=== PATIENT | female | born 1985 ===

== ENCOUNTER 2024-09-22 09:51 | Inpatient (IN) ==
[2024-09-22] MEDS ORDERED: Patient's HEIGHT &/or WEIGHT Needed SCH (10:15)
[2024-09-22] MEDS ORDERED: Patient's ALLERGY Info needs ENTERED SCH (10:15)
--- NOTE | 2024-09-22 11:07 | History & Physical Report ---
Date of Service September 22, 2024 Assessment & Plan (1) Multigravida of advanced maternal age in third trimester: Plan: induction of labor Admission and Anticipated Discharge Date Admission Date: September 22, 2024 History of Present Illness Chief Complaint: induction of labor for AMA Primary Care Provider: LILIYA PCP 38 F P2012 at 39 weeks admitted to L&D for IOL for AMA. GBS is negative. 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 Review of Systems All systems reviewed & are unremarkable except as noted in HPI & below Physical Exam Constitutional: WD/WN, vitals as above Eyes: PERRL, conjunctivae normal, anicteric sclerae Respiratory: normal respiratory effort, lungs clear to auscultation Cardiovascular: Rate/Rhythm: regular rate and regular rhythm Gastrointestinal (Abdomen): Inspection/Auscultation: abdomen normal to inspection Musculoskeletal: Extremities: extremities normal to inspection Skin: no rashes, warm and dry Neurologic: patellar DTR's 2+ bilat, sensation intact Psychiatric: A+Ox3, euthymic affect Genitourinary: no vaginal lesions, no adnexal mass Manual OB Exam: + cervical dilation fingertip, + cervical effacement 50% and + station high OB Exam Monitor Tracing: + external FHT monitor used, + external uterine monitor used, + category I and + normal FHT variability Porter placed transcervically with 45 ml. saline placed in the balloon for ripening Results & Data Vital Signs (Past 12 Hours) Vital Signs Pulse BP 09/22/24 10:06 88 127/78 09/22/24 10:03 87 123/101 H Laboratory Results Laboratory Results - last 72 hr 09/22/24 11:02 WBC 6.30 RBC 3.78 L Hgb 10.9 L Hct 32.0 L MCV 84.7 MCH 28.8 MCHC 34.1 RDW Std Deviation 43.9 RDW Coeff of Malorie 14.3 Plt Count 256 MPV 9.6 Code Status & VTE Plan VTE Prophylaxis Plan VTE Prophylaxis will be ordered: No Monitoring External Monitor Cat 1
[2024-09-22 11:25] LABS: Hemoglobin 10.9 g/dl (12.0-16.0); Mean Corpuscular Hemoglobin 28.8 pg (25.0-34.0); Mean Corpuscular Hgb Conc 34.1 g/dL (32.0-36.0); Mean Corpuscular Volume 84.7 fL (80.0-100.0); Mean Platelet Volume 9.6 fL (9.4-12.4); Platelet Count 256 K/uL (130-400); RDW Coefficient of Variation 14.3 % (11.5-14.5); RDW Standard Deviation 43.9 fL (36.4-46.3); Red Blood Count 3.78 M/uL (4.20-5.40)
[2024-09-22] MEDS ORDERED: OXYTOCIN 30 UNITS/NSS 30 UNITS/500 ML BAG IV PRN ×2 (12:00→19:54)
[2024-09-22] MEDS ORDERED: LIDOCAINE 1% LOCAL 20 ML VIAL INFIL PRN (12:00)
[2024-09-22] MEDS: miSOPROStoL 50 MCG TAB PO SCH (12:06)
[2024-09-22] MEDS ORDERED: fentANYL 2 MCG/ML BUPIVacaine 0.125%-NSS 100ML BAG EPI PRN (16:54)
[2024-09-22] MEDS ORDERED: fentaNYL citrate PF 100 MCG/2 ML VIAL EPI PRN (16:54)
[2024-09-22] MEDS ORDERED: LIDOCAINE 2% MPF LOCAL 5 ML VIAL EPI PRN (16:54)
[2024-09-22] MEDS ORDERED: diphenhydrAMINE 50 MG/ML VIAL IV PRN (16:54)
[2024-09-22] MEDS ORDERED: LIDOCAINE 2%/EPINEPHRINE 1:200,000 20 ML PF EPI STA (16:54)
[2024-09-22] MEDS ORDERED: NALOXONE HCL 0.4 MG/1 ML VIAL/CARP IV PRN (16:54)
[2024-09-22] MEDS ORDERED: ePHEDrine sulfate 50 MG/ML AMP IV PRN (16:54)
[2024-09-22] MEDS ORDERED: BUPIVACAINE 0.25% PF 30 ML VIAL EPI STA (16:54)
[2024-09-22] MEDS ORDERED: NALOXONE HCL 1 MG in SODIUM CHLORIDE 0.9% 1,000 ML IV PRN (16:54)
[2024-09-22] MEDS ORDERED: ROPIVACAINE 0.5% PF 5 MG/ML 20 ML VIAL EPI PRN (16:54)
[2024-09-22] MEDS ORDERED: fentaNYL citrate PF 100 MCG/2 ML VIAL EPI STA (16:54)
[2024-09-22] MEDS ORDERED: SODIUM CHLORIDE 0.9% PF INJ 10 ML VIAL EPI STA (16:54)
[2024-09-22] MEDS ORDERED: BUPIVACAINE 0.25% PF 30 ML VIAL EPI PRN (16:54)
[2024-09-22] MEDS ORDERED: SODIUM CHLORIDE 0.9% PF INJ 10 ML VIAL EPI PRN (16:54)
[2024-09-22] MEDS ORDERED: NALBUPHINE HCL INJ 10 MG/ML AMP IV PRN (16:54)
--- NOTE | 2024-09-22 16:54 | Anesthesiology Consultation ---
Date of Service September 22, 2024 Assessment & Plan ASA ASA2 Proposed Anesthesia Anesthesia Type: Labor Epidural Risk / Benefits Reviewed With: PT / POA / Parent / Guardian, Accepts Plan and Informed Consent Obtained History Height/Weight Height: 5 ft 9 in Weight: 90.718 kg Allergies Allergy/AdvReac Type Severity Reaction Status Date / Time No Known Allergies Allergy Unverified 09/22/24 12:15 Medications Home Medications Medication Instructions Recorded Confirmed Last Taken vits no.124-ferrous fum 1 tab PO DAILY 09/22/24 09/22/24 09/21/24 27 mg iron-folic acid 800 mcg tablet ( Vitamin) Active Medications Generic Name Dose Route Start Last Admin Trade Name Freq PRN Reason Stop Dose Admin Misoprostol 50 mcg 09/22/24 12:00 09/22/24 17:12 Misoprostol 50 Mcg Tab PO 10/22/24 11:59 Not Given Q4 BAYLEE Exercise / Class Metabolic Activity II 4-5 Yardwork/Stairs/Walk up hill Past Surgical History Surgical History H/O breast augmentation Past Anesthesia History No Hx of Anesthesia Complications and No Family Hx of Anesthesia Complications History of PONV No Hx of PONV and No Hx of Motion Sickness Social History Smoking Status: Never smoker Hx Alcohol Use: No Hx Substance Use: No Review of Systems denies fever/cough/ colds/ chest pain/ SOB/ KAILYN denies KAILYN Physical Exam Vital Signs Last Vital Signs Temp 36.9 C 09/22/24 14:15 Pulse 86 09/22/24 17:29 Resp 18 09/22/24 10:41 BP 117/61 09/22/24 17:27 Pulse Ox 100 09/22/24 17:29 ENMT Mouth: no TMJ abnormality and no dentition abnormality Thyromental Distance: > or= 3.5 Finger Breadths Mallampati Class: II Neck neck extension not limited Respiratory normal respiratory effort; no respiratory distress Auscultation: lungs clear to auscultation bilaterally Cardiovascular Rate/Rhythm: regular rate and regular rhythm Neurologic moves all extremities Psychiatric Orientation: alert and oriented x 3 Testing Laboratory Results 09/22/24 11:02
[2024-09-22] MEDS ORDERED: SODIUM CHLORIDE 0.9% 1,000 ML IV SCH (17:10)
[2024-09-22] MEDS: fentANYL 2 MCG/ML BUPIVacaine 0.125%-NSS 100ML BAG ONE (17:10)
[2024-09-22] MEDS: BUPIVACAINE 0.25% PF 30 ML VIAL ONE (17:25)
[2024-09-22] MEDS: LIDOCAINE 2%/EPINEPHRINE 1:200,000 20 ML PF ONE (17:25)
[2024-09-22] MEDS: fentaNYL citrate PF 100 MCG/2 ML VIAL ONE (17:28)
--- NOTE | 2024-09-22 17:46 | Labor Progress Brief Note ---
Date of Service September 22, 2024 Assessment & Plan Admission and Anticipated Discharge Date Admission Date: September 22, 2024 Physical Exam Genitourinary: Manual OB Exam: + cervical dilation 4 cm, + cervical effacement 60%, + station -2 and + amniotic fluid clear OB Exam Monitor Tracing: + external FHT monitor used, + external uterine monitor used, + category I and + normal FHT variability AROM with Amni-hook clear fluid Results & Data Vital Signs (Past 12 Hours) Vital Signs Temp Pulse Resp BP Pulse Ox 09/22/24 17:44 98 09/22/24 17:44 92 H 09/22/24 17:42 83 09/22/24 17:42 111/56 L 09/22/24 17:41 92 09/22/24 17:41 91 H 09/22/24 17:40 91 H 09/22/24 17:40 106/61 09/22/24 17:39 99 09/22/24 17:39 91 H 09/22/24 17:39 81 09/22/24 17:39 105/57 L 09/22/24 17:35 91 H 09/22/24 17:35 98/53 L 09/22/24 17:34 100 09/22/24 17:34 84 09/22/24 17:34 93 09/22/24 17:34 92 H 09/22/24 17:29 100 09/22/24 17:29 86 09/22/24 17:29 90 09/22/24 17:29 95 H 09/22/24 17:27 93 H 09/22/24 17:27 117/61 09/22/24 17:26 85 09/22/24 17:26 125/58 L 09/22/24 17:24 97 09/22/24 17:24 86 09/22/24 17:22 94 09/22/24 17:22 108 H 09/22/24 17:21 96 H 09/22/24 17:21 109/54 L 09/22/24 17:19 96 09/22/24 17:19 93 H 09/22/24 17:19 93 H 09/22/24 17:19 118/56 L 09/22/24 17:17 96 H 09/22/24 17:17 112/56 L 09/22/24 17:15 96 H 09/22/24 17:15 116/61 09/22/24 17:14 98 09/22/24 17:14 94 H 09/22/24 17:13 91 H 09/22/24 17:13 123/65 09/22/24 17:11 88 09/22/24 17:11 120/64 09/22/24 17:09 97 09/22/24 17:09 79 09/22/24 17:09 126/70 09/22/24 17:08 92 H 09/22/24 17:08 119/68 09/22/24 17:05 82 09/22/24 17:05 127/69 09/22/24 17:04 97 09/22/24 17:04 84 09/22/24 17:03 78 09/22/24 17:03 131/81 09/22/24 17:01 83 09/22/24 17:01 129/84 09/22/24 16:59 98 09/22/24 16:59 79 09/22/24 16:59 131/77 09/22/24 16:25 80 09/22/24 16:25 125/64 09/22/24 14:16 82 09/22/24 14:16 125/58 L 09/22/24 14:15 36.9 C 09/22/24 10:41 36.8 C 18 09/22/24 10:06 36.8 C 88 18 127/78 09/22/24 10:03 87 123/101 H
[2024-09-22] MEDS: ePHEDrine sulfate 50 MG/ML AMP ONE (17:54)
[2024-09-22] MEDS: OXYTOCIN 30 UNITS/NSS 30 UNITS/500 ML BAG IV PRN (18:18)
[2024-09-22] MEDS ORDERED: BENZOCAINE 20% SPRY 85 APPLN/85 GM CAN EXT PRN (19:54)
[2024-09-22] MEDS ORDERED: bisacodyL 10 MG SUPP PR PRN (19:54)
[2024-09-22] MEDS ORDERED: HYDROCORTISONE ACETATE 25 MG SUPP PR PRN (19:54)
[2024-09-22] MEDS ORDERED: ACETAMINOPHEN 325 MG TAB PO PRN (19:54)
--- NOTE | 2024-09-22 20:02 | Delivery Summary ---
Vaginal Delivery Summary Date of Service September 22, 2024 Vaginal Delivery Summary live female over intact perineum with nuchal cord x1 reduced at delivery of head. Delayed cord clamping followed by cord blood and spontaneous delivery of intact placenta which was sent to lab. No tears. QBL 50 ml. Bladder emptied with 100 ml. mia urine. Final sponge and instrument count are correct. Mom and baby stable.
[2024-09-22] MEDS: DIPHTHER/TETAN/PERTUS Vaccine (Tdap, Adol/Adult) 0.5mL IM ONE (20:15)
[2024-09-22] MEDS: SODIUM CHLORIDE 0.9% PF INJ 10 ML VIAL ONE (20:15)
--- NOTE | 2024-09-22 20:39 | Anesthesia Procedure Note ---
Date of Service September 22, 2024 Anesthesia Post Epidural Note Vital Signs Vital Signs: Temp Pulse Resp BP Pulse Ox O2 Del Method 98.2 F 80 18 138/69 96 Room Air 09/22/24 19:15 09/22/24 20:35 09/22/24 20:05 09/22/24 20:35 09/22/24 19:44 09/22/24 19:13 Pain Intensity Lower Medial Abdomen: Pain Intensity: 0 Notes Mental Status: alert / awake / arousable and participated in evaluation Nausea / Vomiting: adequately controlled Pain: adequately controlled Airway Patency, RR, SpO2: stable & adequate BP & HR: stable & adequate Hydration State: stable & adequate Neuraxial Anesthesia: was administered and sensory block is resolving Anesthetic Complications: no major complications apparent and Pt Satisfied with anesthetic care Epidural: Removed without complications and With tip intact
[2024-09-22] MEDS: DOCUSATE SODIUM 100 MG CAP PO SCH (21:53)
[2024-09-23] MEDS: IBUPROFEN 600 MG TAB PO PRN (00:03)
[2024-09-23 06:16] LABS: Hematocrit (blood only) 30.1 % (37.0-47.0); Hemoglobin 10.1 g/dl (12.0-16.0); Mean Corpuscular Hemoglobin 28.9 pg (25.0-34.0); Mean Corpuscular Hgb Conc 33.6 g/dL (32.0-36.0); Mean Platelet Volume 9.6 fL (9.4-12.4); Platelet Count 229 K/uL (130-400); RDW Coefficient of Variation 14.3 % (11.5-14.5); RDW Standard Deviation 44.7 fL (36.4-46.3); White Blood Count 8.27 K/ul (4.8-10.8)
[2024-09-23] MEDS: PRENATAL VITAMIN 1 TAB PO SCH (08:26)
[2024-09-23] MEDS: FERROUS SULFATE 325 MG TAB PO SCH (08:27)
[2024-09-23] MEDS ORDERED: PRENATAL VITAMIN 1 TAB PO SCH (09:00)
--- NOTE | 2024-09-23 10:37 | Obstetrical Progress Note ---
Date of Service September 23, 2024 Assessment & Plan (1) Normal course: Pt doing well No complaints disch home with instruction Results & Data Vital Signs (Past 12 Hours) Vital Signs Temp Pulse Resp BP Pulse Ox O2 Del Method 09/23/24 08:15 36.6 C 75 16 131/73 97 Room Air 09/23/24 03:40 36.7 C 82 18 114/70 97 Room Air 09/23/24 00:00 36.7 C 91 H 18 127/75 97 Room Air
[2024-09-23 16:28] VITALS: O2SAT 98
[2024-09-23 19:43] VITALS: BP 130/76; PULSE 80; RESP 18; TEMP 97.9
[2024-09-23] MEDS: bisacodyL 5 MG TABEC PO SCH (19:44)
== END 2024-09-23 20:28 | disposition home health service (06) | DRG 807 ==
LOC: 4S1 09:51 → 4E2 22:39